=== PATIENT | female | born 1995 | race Caucasian/White ===

== ENCOUNTER 2021-03-03 13:32 | Emergency (ER) | payer SELFPAY ==
[~2021-03-03] VITALS: Ht 172.7 cm; Wt 81.8 kg
[2021-03-03 13:46] VITALS: TEMP 98.3
[2021-03-03] MEDS ORDERED: NORCO 325 MG-51 TAB PO (16:18)
[2021-03-03 16:28] VITALS: BP 129/78; PULSE 71
== END 2021-03-03 16:29 | disposition home or self-care (01) ==
LOC: COL.ER 13:32
DX: S82.142A Displaced bicondylar fracture of left tibia, initial encounter for closed fracture (principal); V80.010A Animal-rider injured by fall from or being thrown from horse in noncollision accident, initial encounter
CPT/HCPCS: L1846